=== PATIENT | male | born 1965 ===

== ENCOUNTER 2024-08-24 15:29 | Outpatient (CLI) | payer BC, SELFPAY ==
--- NOTE | 2024-08-24 15:33 | MRR_ITS ---
PROCEDURE INFORMATION: Exam: MR Left Upper Extremity Joint Without Contrast; Elbow Exam date and time: 08/24/2024 4:14 PM Age: 59 years old Clinical indication: Left elbow pain. Injured lifting heavy object 2 weeks ago. Limited range of motion. Osteophyte, left elbow. TECHNIQUE: Imaging protocol: Magnetic resonance imaging of the left upper extremity without contrast. Exam focused on the elbow. COMPARISON: No relevant prior studies available. FINDINGS: Bones/joints: Small elbow joint effusion. The posterior joint capsule appears partially torn. No acute fracture is seen. Ulnar (medial) collateral ligament: The ulnar collateral ligament is intact. Radial collateral ligament of the elbow: Tearing of the radial collateral ligament. Probable sprain of the lateral ulnar collateral ligament. Annular ligament of the radius: The annular ligament is not well assessed. Tendon of the biceps brachii: Mild tendinosis of the distal biceps tendon. Tendon of the brachialis: The brachialis tendon is grossly intact. Triceps tendon: The triceps tendon is grossly intact. Common flexor tendon: The common flexor tendon is intact. Common extensor tendon: Tendinosis and high-grade partial tearing of the common extensor tendon. Soft tissues: Acute strain of the extensor carpi radialis longest muscle. There is subcutaneous edema about the radial, ulnar and posterior elbow. Probable acute strain of the flexor digitorum profundus. MR/MR elbow LT wo con* [id number] IMPRESSION: 1. The posterior joint capsule appears partially torn. 2. Tearing of the radial collateral ligament. 3. Probable sprain of the lateral ulnar collateral ligament. 4. Tendinosis and high-grade partial tearing of the common extensor tendon. 5. Mild tendinosis of the distal biceps tendon. 6. Acute strain of the extensor carpi radialis longest muscle. 7. Probable acute strain of the flexor digitorum profundus. 8. Subcutaneous edema about the radial, ulnar and posterior elbow. 9. Small elbow joint effusion.
== END 2024-08-24 15:30 | disposition home or self-care (01) ==
LOC: RAD 15:31
PROVIDERS: PCP Family Medicine; Visit Provider Orthopaedic Surgery
DX: S53.22XA Traumatic rupture of left radial collateral ligament, initial encounter (principal); M66 Spontaneous rupture of synovium and tendon; S46.012A Strain of muscle(s) and tendon(s) of the rotator cuff of left shoulder, initial encounter; R22.32 Localized swelling, mass and lump, left upper limb; X50.0XXA Overexertion from strenuous movement or load, initial encounter
CPT/HCPCS: 73221